=== PATIENT | female | born 1985 | race Caucasian/White ===

== ENCOUNTER 2016-09-28 00:45 | Emergency (ER) | payer MEDICAID ==
[2016-09-28 00:56] VITALS: TEMP 98.1
[2016-09-28 01:03] VITALS: BMI 22.1
[2016-09-28] MEDS ORDERED: ACETAMINOPHEN 325 MG/TAB TABLET PO ONE (01:05)
--- NOTE | 2016-09-28 01:09 | EDPRACDOC ---
<Clovis Ramirez - Last Filed: 09/28/16 04:59> - General Information Information Source: Patient Mode Of Arrival: Ambulance - History of Present Illness Onset: UNKNOWN HPI: C/o heroin OD by IV in left AC per EMS. Pt was agonal at 6 breaths/min, sats 90 ", and HR 100. Given 0.5 narcan and became alert oriented. pt now stable, responsive and alert, but non specific in answers to questions about her drug use. Only complaint is a head ache and nausea. Hx of IV drug use. Denies suicidal attempt or intention. Ingestion: Reports: Intentional Suicidal Intent: Denies: Suicidal Intent, Suicidal Plan, Left Suicide Note, None , SUIC, U, O Associated Signs and Symptoms: Reports: Other (heroin) <Sam Holbrook - Last Filed: 09/28/16 05:58> - General Information Chief Complaint: Overdose Stated Complaint: OVERDOSE Time Seen by Provider: 09/28/16 00:52 Home Medications: Home Medications Gabapentin 400 mg PO TID 07/22/16 Allergies/Adverse Reactions: Allergies Allergy/AdvReac Type Severity Reaction Status Date / Time No Known Allergies Allergy Verified 07/22/16 10:45 ED Past Medical History - History Reviewed Yes Nurses notes reviewed and agree except as marked - Patient Medical History Respiratory History: Reports: Asthma (uses inhaler) GI/ History: Reports: Urinary Tract Infection Psychological History: Denies: Depression Systemic History: Denies: Cancer Additional Past Medical History: CHRONIC PAIN Surgical History: Reports: Other (BTL). Denies: Cholecystectomy - Family Medical History Denies: Hypertension, Diabetes, Cancer, Stroke, Cardiac Disorders - Social Medical History Smoking Status: Heavy tobacco smoker (5 or more cigarettes/day or daily pipe/ cigar) <Sam Holbrook - Last Filed: 09/28/16 05:58> EDM Review of Systems - Review of Systems ROS Negative Except as Marked: Yes All systems reviewed and were negative except as marked Neurological: Headache Psychiatric: Other (IV drug use) <Sam Holbrook - Last Filed: 09/28/16 05:58> - Physical Exam Last recorded Vital Signs: Last Vital Signs Temp 98.1 F 09/28/16 00:56 Pulse 77 09/28/16 03:39 Resp 16 09/28/16 03:39 BP 105/65 09/28/16 03:39 Pulse Ox 95 09/28/16 03:39 Oxygen Pulse Oxygen Saturation 95 O2 Device Oxygen Flow Rate Fraction of Inspired Oxygen ( FIO2) <Bobo Ramirezus - Last Filed: 09/28/16 04:59> - Physical Exam Constitutional: No apparent distress, Alert Oriented to: Time, Person, Place Last recorded Vital Signs: Last Vital Signs Temp 98.1 F 09/28/16 00:56 Pulse 75 09/28/16 00:56 Resp 15 09/28/16 00:56 BP 123/73 09/28/16 00:56 Pulse Ox 98 09/28/16 00:56 Oxygen Pulse Oxygen Saturation 98 O2 Device Oxygen Flow Rate Fraction of Inspired Oxygen ( FIO2) - HEENT Head: Normal Eye Exam: negative: Conjunctival Injection, Scleral Icterus Oropharynx: negative: Drooling TMJ: Normal Nose: No Symptoms Reported Neck: Normal - Respiratory/Cardiovascular Respiratory: Normal - CTA Cardiovascular: Normal - GI Tenderness: Non tender - Musculoskeletal Back: Normal Extremities: Normal - Integumentary Skin: Normal - Neurologic Mood Description: Normal, Calm Thought: Coherent Perception: Normal <Sam Holbrook - Last Filed: 09/28/16 05:58> - Re-evaluation Re-evaluation 2 Re-evaluation Time: 04:59 (PATIENT EASILY AWAKENS TO VOICE) <Clovis Ramirez - Last Filed: 09/28/16 04:59> - Re-evaluation Re-evaluation 1 Re-evaluation Time: 02:58 (VS nml. pt has no complaints. ORR and nausea gone. Alert and responsive) - EKG EKG #1 EKG Time: 01:13 -: Yes EKG interpreted by me Rate: bpm: 78 Rhythm: NSR ST: Normal <Sam Holbrook - Last Filed: 09/28/16 05:58> Decision Time to Discharge: 04:59 - Departure Yes I personally saw and evaluated the patient. Disposition: Home Education/Counseling Given To: Patient Education/Counseling Given Regarding: Diagnosis, Treatment, Prognosis, Follow Up <Clovis Ramirez - Last Filed: 09/28/16 04:59> <Sam Holbrook - Last Filed: 09/28/16 05:58> - Departure Condition: Stable Final Diagnosis: Narcotic abuse Instructions: Accidental Overdose, Adult Overdose Referrals: None,No Provider [Primary Care Provider] - One Week Bell Best MD [Staff Physician] - One Week
[2016-09-28] MEDS ORDERED: ONDANSETRON HCL 4 MG/2 ML VIAL IV ONE (01:13)
[2016-09-28 05:44] VITALS: BP 105/58; PULSE 70
== END 2016-09-28 05:42 | disposition home or self-care (01) ==
LOC: ED 00:45
DX: F19.10 Other psychoactive substance abuse, uncomplicated (principal)
CPT/HCPCS: 96374; 99284; J2405; J3490

== ENCOUNTER 2016-10-15 22:06 | Emergency (ER) | payer MEDICAID ==
[2016-10-15 22:06] VITALS: BMI 22.1
[~2016-10-15 22:06] MED LIST: NALOXONE 2 MG/2 ML SYRINGE IV STA
[2016-10-15] MEDS ORDERED: NALOXONE 2 MG/2 ML SYRINGE IV STA (22:07)
[2016-10-15] MEDS ORDERED: NS 1,000 ML IV ONE (22:08)
--- NOTE | 2016-10-15 22:23 | EDPRACDOC ---
<Clovis Ramirez - Last Filed: 10/16/16 01:52> - General Information Information Source: Family Mode Of Arrival: Car - History of Present Illness Onset: [employer]OOKING [employer] HPI: PT FOUND BY HER UNCLE UNRESPONSIVE. PT HAS A HX OF IVDA AND OD'D ON 09/27. PT' S UNCLE SAID PT DID 2 "LINES OF HEROIN." PT UNRESPONSIVE AND CYANOTIC UPON ARRIVAL. PT ALSO HAD 6 TEETH REMOVED TODAY. Ingestion: Reports: Accidental Suicidal Intent: Reports: None Reason for Seeking Treatment: Family Symptom Severity: Severe <Denisse Isaacs - Last Filed: 10/19/16 10:40> - General Information Stated Complaint: OD Time Seen by Provider: 10/15/16 22:06 Home Medications: Home Medications Gabapentin 400 mg PO TID 07/22/16 Unobtainable 0 mg PO .SEE COMMENTS 10/15/16 Allergies/Adverse Reactions: Allergies Allergy/AdvReac Type Severity Reaction Status Date / Time No Known Allergies Allergy Verified 07/22/16 10:45 ED Past Medical History - Patient Medical History Respiratory History: Reports: Asthma (uses inhaler) GI/ History: Reports: Urinary Tract Infection Psychological History: Denies: Depression Systemic History: Denies: Cancer Additional Past Medical History: CHRONIC PAIN Surgical History: Reports: Other (BTL). Denies: Cholecystectomy - Family Medical History Denies: Hypertension, Diabetes, Cancer, Stroke, Cardiac Disorders - Social Medical History Smoking Status: Heavy tobacco smoker (5 or more cigarettes/day or daily pipe/ cigar) Social History: Reports: Heroin Use Substance Abuse: Illicit Drugs Lives In: Home <Denisse Isaacs - Last Filed: 10/19/16 10:40> EDM Review of Systems - Review of Systems ROS Unobtainable: Yes Review of systems cannot be obtained due to the patient's medical condition <Denisse Isaacs - Last Filed: 10/19/16 10:40> - Physical Exam Last recorded Vital Signs: Last Vital Signs Temp 98.7 F 10/15/16 22:10 Pulse 93 10/16/16 01:01 Resp 20 10/16/16 01:01 BP 115/75 10/16/16 01:01 Pulse Ox 95 10/16/16 01:01 Oxygen Pulse Oxygen Saturation 95 O2 Device Room Air Oxygen Flow Rate 2 Fraction of Inspired Oxygen ( FIO2) <Clovis Ramirez - Last Filed: 10/16/16 01:52> - Physical Exam Constitutional: Uncooperative Oriented to: Unable to Test Last recorded Vital Signs: Oxygen Pulse Oxygen Saturation O2 Device Oxygen Flow Rate Fraction of Inspired Oxygen ( FIO2) - HEENT Head: Normal ( normocephalic) Eye Exam: Normal (PERRL, EOMI, Sclera white) Oropharynx: Normal (Pharynx:Moist without exudate,Gums-no swelling) ENT EAC: Normal TMJ: Normal Nose: No Symptoms Reported (septum midline) Neck: Normal (FROM, trachea at midline) - Respiratory/Cardiovascular Respiratory: Other (APNEIC) Cardiovascular: Normal - GI Auscultation: Normal (NABS) Palpation: Normal (Soft,No rebound or guarding, non distended) Tenderness: Non tender Pham's Sign: Negative - Musculoskeletal Back: Normal (Non-Tender) Extremities: Normal (Normal tone, Pulses 2+ No cyanosis or edema, FROM) - Integumentary Skin: Other (CYANOTIC) - Neurologic Memory Impaired: Unable to Test Motor Function: Unable to Test Cranial Nerve: Unable to Test <Denisse Isaacs - Last Filed: 10/19/16 10:40> - Results 10/15/16 22:10 10/15/16 22:10 WBC 26.9 xk/uL (3.8-10.8) H 10/15/16 22:10 RBC 4.54 xM/uL (4.20-5.40) 10/15/16 22:10 Hgb 14.0 g/dL (12.0-16.0) 10/15/16 22:10 Hct 42.5 % (36-47) 10/15/16 22:10 MCV 94 fL (81-99) 10/15/16 22:10 MCH 30.8 pg (27-32) 10/15/16 22:10 MCHC 32.9 g/dl (33-36) L 10/15/16 22:10 RDW 13.3 % (11.5-14.5) 10/15/16 22:10 Plt Count 424 xk/uL (130-400) H 10/15/16 22:10 MPV 8.6 fL (7.4-10.4) 10/15/16 22:10 Neut % (Auto) Cancelled 10/15/16 22:10 Lymph % (Auto) Cancelled 10/15/16 22:10 [place] % (Auto) Cancelled 10/15/16 22:10 Eos % (Auto) Cancelled 10/15/16 22:10 Baso % (Auto) Cancelled 10/15/16 22:10 Absolute Neuts (auto) Cancelled 10/15/16 22:10 Absolute Lymphs (auto) Cancelled 10/15/16 22:10 Seg Neuts % (Manual) 74 % (45-76) 10/15/16 22:10 Band Neutrophils % 1 % (0-5) 10/15/16 22:10 Lymphocytes % (Manual) 11 % (17-44) L 10/15/16 22:10 Monocytes % (Manual) 13 % (0-10) H 10/15/16 22:10 Eosinophils % (Manual) 1 % (0-5) 10/15/16 22:10 Absolute Neutrophils 20.18 xk/uL (1.7-8.2) H 10/15/16 22:10 Absolute Lymphocytes 2.96 xk/uL (0.65-4.75) 10/15/16 22:10 Platelet Estimate Inc (NORMAL) 10/15/16 22:10 RBC Morphology Norm 10/15/16 22:10 Sodium 138 mEq/L (137-146) 10/15/16 22:10 Potassium 3.8 mEq/L (3.5-5.1) 10/15/16 22:10 Chloride 100 mEq/L (98-107) 10/15/16 22:10 Carbon Dioxide 23 mMOL/L (22-33) 10/15/16 22:10 Anion Gap 19 mEq/L (8-16) H 10/15/16 22:10 BUN 12 MG/DL (7-17) 10/15/16 22:10 Creatinine 0.90 MG/DL (0.52-1.04) 10/15/16 22:10 Estimated GFR (MDRD) > 60 mL/min (>=60) 10/15/16 22:10 Glucose 330 mg/dL (70-99) H 10/15/16 22:10 Calculated Osmolality 279 MOs/Kg (270-290) 10/15/16 22:10 Calcium 8.7 MG/DL (8.4-10.2) 10/15/16 22:10 Total Bilirubin 0.4 MG/DL (0.2-1.3) 10/15/16 22:10 AST 80 IU/L (14-36) H 10/15/16 22:10 ALT 111 IU/L (9-52) H 10/15/16 22:10 Alkaline Phosphatase 53 IU/L (38-126) 10/15/16 22:10 Troponin I < 0.01 ng/mL (<.04) 10/15/16 22:10 Total Protein 8.2 G/DL (6.3-8.2) 10/15/16 22:10 Albumin 4.3 G/DL (3.5-5.0) 10/15/16 22:10 Urine Color Pale yellow 10/15/16 22:54 Urine Clarity Clear 10/15/16 22:54 Urine pH 6.0 (5.0-8.0) 10/15/16 22:54 Ur Specific [place] 1.015 (1.003-1.035) 10/15/16 22:54 Urine Protein 1+ (NEG/TRACE) H 10/15/16 22:54 Urine Glucose (UA) 3+ (NEGATIVE) H 10/15/16 22:54 Urine Ketones 1+ (NEGATIVE) H 10/15/16 22:54 Urine Occult Blood Neg (NEG/TRACE) 10/15/16 22:54 Urine Nitrite Neg (NEGATIVE) 10/15/16 22:54 Urine Bilirubin Neg (NEGATIVE) 10/15/16 22:54 Urine Urobilinogen <2.0 MG/DL (0-1) 10/15/16 22:54 Ur Leukocyte Esterase Neg (NEGATIVE) 10/15/16 22:54 Ur Epithelial Cells 2+ 10/15/16 22:54 Urine Mucus Occ (NEG/OCC) 10/15/16 22:54 Urine Test Neg (NEGATIVE) 10/15/16 22:54 Urine Opiates Screen *positive* (NEGATIVE) H 10/15/16 22:54 Ur Oxycodone Screen *positive* (NEGATIVE) H 10/15/16 22:54 Urine Methadone Screen Neg (NEGATIVE) 10/15/16 22:54 Ur Barbiturates Screen Neg (NEGATIVE) 10/15/16 22:54 Ur Tricyclics Screen Neg (NEGATIVE) 10/15/16 22:54 Ur Phencyclidine Scrn Neg (NEGATIVE) 10/15/16 22:54 Ur Amphetamines Screen Neg (NEGATIVE) 10/15/16 22:54 U Methamphetamines Scrn Neg (NEGATIVE) 10/15/16 22:54 Urine MDMA Screen Neg (NEGATIVE) 10/15/16 22:54 U Benzodiazepines Scrn *positive* (NEGATIVE) H 10/15/16 22:54 Urine Cocaine Screen *positive* (NEGATIVE) H 10/15/16 22:54 Ur THC Screen Neg (NEGATIVE) 10/15/16 22:54 Lab Results 10/15/16 10/15/16 10/15/16 22:54 22:54 22:54 WBC RBC Hgb Hct MCV MCH MCHC RDW Plt Count MPV Neut % (Auto) Lymph % (Auto) [place] % (Auto) Eos % (Auto) Baso % (Auto) Absolute Neuts (auto) Absolute Lymphs (auto) Seg Neuts % (Manual) Band Neutrophils % Lymphocytes % (Manual) Monocytes % (Manual) Eosinophils % (Manual) Absolute Neutrophils Absolute Lymphocytes Platelet Estimate RBC Morphology Sodium Potassium Chloride Carbon Dioxide Anion Gap BUN Creatinine Estimated GFR (MDRD) Glucose Calculated Osmolality Calcium Total Bilirubin AST ALT Alkaline Phosphatase Troponin I Total Protein Albumin Urine Color Pale yellow Urine Clarity Clear Urine pH 6.0 Ur Specific [place] 1.015 Urine Protein 1+ H Urine Glucose (UA) 3+ H Urine Ketones 1+ H Urine Occult Blood Neg Urine Nitrite Neg Urine Bilirubin Neg Urine Urobilinogen <2.0 Ur Leukocyte Esterase Neg Ur Epithelial Cells 2+ Urine Mucus Occ Urine Test Neg Urine Opiates Screen *positive* H Ur Oxycodone Screen *positive* H Urine Methadone Screen Neg Ur Barbiturates Screen Neg Ur Tricyclics Screen Neg Ur Phencyclidine Scrn Neg Ur Amphetamines Screen Neg U Methamphetamines Scrn Neg Urine MDMA Screen Neg U Benzodiazepines Scrn *positive* H Urine Cocaine Screen *positive* H Ur THC Screen Neg 10/15/16 10/15/16 22:10 22:10 WBC 26.9 H RBC 4.54 Hgb 14.0 Hct 42.5 MCV 94 MCH 30.8 MCHC 32.9 L RDW 13.3 Plt Count 424 H MPV 8.6 Neut % (Auto) Cancelled Lymph % (Auto) Cancelled [place] % (Auto) Cancelled Eos % (Auto) Cancelled Baso % (Auto) Cancelled Absolute Neuts (auto) Cancelled Absolute Lymphs (auto) Cancelled Seg Neuts % (Manual) 74 Band Neutrophils % 1 Lymphocytes % (Manual) 11 L Monocytes % (Manual) 13 H Eosinophils % (Manual) 1 Absolute Neutrophils 20.18 H Absolute Lymphocytes 2.96 Platelet Estimate Inc RBC Morphology Norm Sodium 138 Potassium 3.8 Chloride 100 Carbon Dioxide 23 Anion Gap 19 H BUN 12 Creatinine 0.90 Estimated GFR (MDRD) > 60 Glucose 330 H Calculated Osmolality 279 Calcium 8.7 Total Bilirubin 0.4 AST 80 H ALT 111 H Alkaline Phosphatase 53 Troponin I < 0.01 Total Protein 8.2 Albumin 4.3 Urine Color Urine Clarity Urine pH Ur Specific [place] Urine Protein Urine Glucose (UA) Urine Ketones Urine Occult Blood Urine Nitrite Urine Bilirubin Urine Urobilinogen Ur Leukocyte Esterase Ur Epithelial Cells Urine Mucus Urine Test Urine Opiates Screen Ur Oxycodone Screen Urine Methadone Screen Ur Barbiturates Screen Ur Tricyclics Screen Ur Phencyclidine Scrn Ur Amphetamines Screen U Methamphetamines Scrn Urine MDMA Screen U Benzodiazepines Scrn Urine Cocaine Screen Ur THC Screen <Clovis Ramirez - Last Filed: 10/16/16 01:52> - Results 10/15/16 22:10 10/15/16 22:10 - EKG EKG #1 EKG Time: 22:05 -: Yes EKG interpreted by me Rate: bpm: 96 [place]: Normal Rhythm: NSR Block: None Hypertrophy: None ST: Normal - Additional Information MINIMAL RESPONSE WITH 2 MG OF NARCAN. AFTER A TOTAL OF 4 MG, PT AWAKE AND ALERT. <Denisse Isaacs - Last Filed: 10/19/16 10:40> ED Critical Care Note - Critical Care Note Total Time (mins): 30 <Denisse Isaacs - Last Filed: 10/19/16 10:40> - Departure Disposition: Trans. to Other Hospital ([facility]) Education/Counseling Given To: Patient Education/Counseling Given Regarding: Diagnosis, Treatment, Prognosis <Clovis Ramirez - Last Filed: 10/16/16 01:52> - Departure Yes I personally saw and evaluated the patient. Decision to Transfer Time: 02:00 <Denisse Isaacs - Last Filed: 10/19/16 10:40> - Departure Condition: Fair Final Diagnosis: Heroin abuse, Cocaine abuse, Hyperglycemia, Pneumomediastinum Heroin overdose Qualifiers: Encounter type: initial encounter Injury intent: accidental or unintentional Qualified Code(s): T40.1X1A - Poisoning by heroin, accidental (unintentional), initial encounter Aspiration pneumonia Qualifiers: Aspiration pneumonia type: unspecified Laterality: bilateral Lung location: unspecified part of lung Qualified Code(s): J69.0 - Pneumonitis due to inhalation of food and vomit Instructions: Narcotic Abuse (ED) Referrals: None,No Provider [Primary Care Provider] - One Week Prescriptions: No Action Gabapentin 400 mg PO TID Unobtainable 0 mg PO .SEE COMMENTS Additional Instructions: STOP USING HEROIN AND COCAINE. RECHECK BS IN 1 WEEK.
[2016-10-15 22:24] LABS: MPV 8.6 fL (7.4-10.4)
[2016-10-15 22:38] LABS: BLOOD UREA NITROGEN 12 MG/DL (7-17); CALCIUM 8.7 MG/DL (8.4-10.2); CALCULATED OSMOLALITY 279 MOs/Kg (270-290); CHLORIDE 100 mEq/L (98-107); GLUCOSE 330 mg/dL (70-99); SODIUM LEVEL 138 mEq/L (137-146); TOTAL PROTEIN 8.2 G/DL (6.3-8.2)
[2016-10-15 22:41] LABS: SEG NEUTROPHIL 74 % (45-76); TOTAL CELL COUNT 100
[2016-10-15 23:05] LABS: ALL NEG? NO
[2016-10-15 23:20] LABS: MDMA* NEG (NEGATIVE); METHAMPHETAMINES NEG (NEGATIVE); OXYCODONE *POSITIVE* (NEGATIVE)
[2016-10-15 23:22] LABS: LEUKOCYTES/URINE NEG (NEGATIVE); NITRITE/URINE NEG (NEGATIVE); URINE OCCULT BLOOD NEG (NEG/TRACE)
[2016-10-15] MEDS ORDERED: Pharmacy Review for Metformin - IV Contrast Given SCH (23:45)
--- NOTE | 2016-10-15 23:47 | DIRPT ---
CLINICAL DATA: Overdose EXAM: PORTABLE CHEST 1 VIEW COMPARISON: 07/22/2016 FINDINGS: Soft tissue gas in the right more than left neck. There is no evidence of pneumothorax or rib fracture. The lungs are clear. Normal heart size and mediastinal contours. IMPRESSION: Soft tissue gas in the right more than left neck without visible pneumothorax or pneumomediastinum. If no penetrating injury, findings compatible with air leak from uncertain source. Electronically Signed By: Jonas Nagel M.D. On: 10/15/2016 23:44
--- NOTE | 2016-10-16 00:39 | DIRPT ---
CLINICAL DATA: Follow-up of chest radiograph, evaluate free air. Drug overdose. EXAM: CT NECK WITH CONTRAST TECHNIQUE: Multidetector CT imaging of the neck was performed using the standard protocol following the bolus administration of intravenous contrast. CONTRAST: 90 cc Isovue 370 COMPARISON: None. FINDINGS: Soft tissues: Small amount of pneumomediastinum with extensive subcutaneous gas tracking through the RIGHT greater than LEFT neck into the face and skull base. No focal fluid collection, no radiopaque foreign bodies. Pharynx and larynx: Normal. Salivary glands: Normal. Thyroid: Normal. Lymph nodes: No lymphadenopathy by CT size criteria. Vascular: Normal. Limited intracranial: Normal. Visualized orbits: Normal. Mastoids and visualized paranasal sinuses: Mild LEFT maxillary sinus mucosal thickening. Mastoid air cells are well aerated. Skeleton: Normal. Upper chest: Patchy ground-glass centrilobular nodules in the lower lobes bilaterally. No pneumothorax. IMPRESSION: Small amount of pneumomediastinum, with subcutaneous gas in the neck and face, no identifiable etiology in the neck. Ground-glass centrilobular nodules partially imaged in the lower lobes bilaterally most consistent with aspiration/ pneumonia. Electronically Signed By: Yael Santos M.D. On: 10/16/2016 00:37
[2016-10-16] MEDS ORDERED: PIPERACILLIN AND TAZOBACTAM 3.375 GM in D5W 100 ML IV ONE (01:21)
[2016-10-16 02:01] LABS: ALLEN'S TEST PASS; BEb -1.5 (+/- 2); TCO2 26.2 MMOL/L (23-27)
[2016-10-16 02:03] LABS: ABG Draw Site Right Radial
[2016-10-16 02:51] VITALS: BP 120/70; PULSE 91; TEMP 98.1
== END 2016-10-16 02:49 | disposition short-term general hospital (02) ==
LOC: ED 22:06
DX: T40.1X1A Poisoning by heroin, accidental (unintentional), initial encounter (principal); J98.2 Interstitial emphysema; R73.9 Hyperglycemia, unspecified; F14.10 Cocaine abuse, uncomplicated
CPT/HCPCS: 36415; 36600; 70491; 71010; 80053; 80307; 81001; 81025; 82803; 83605; 84484; 85007; 85027; 87040; 93005; 96361; 96365; 96375; 96376; 99285; A9698; J2310; J2543; J7060